=== PATIENT | female | born 1975 | race Caucasian/White ===

== ENCOUNTER 2024-12-21 14:18 | Outpatient (CLI) | payer OTHER | END 2024-12-21 14:19 | disposition home or self-care (01) | LOC: SCSMRI 14:18 | PROVIDERS: ATTEND Family Medicine | DX: S39.92XD Unspecified injury of lower back, subsequent encounter (principal); M47.816 Spondylosis without myelopathy or radiculopathy, lumbar region; M51.369 Other intervertebral disc degeneration, lumbar region without mention of lumbar back pain or lower extremity pain; M43.8X4 Other specified deforming dorsopathies, thoracic region | CPT/HCPCS: 72146; 72148 ==

== ENCOUNTER 2025-01-04 17:42 | Emergency (ER) | payer SELFPAY ==
[2025-01-04] MEDS ORDERED: predniSONE 20 MG TAB ONE (19:13)
[2025-01-04] MEDS ORDERED: Orphenadrine Citrate 100 MG ER.TAB ONE (19:13)
== END 2025-01-04 20:30 | disposition home or self-care (01) ==
LOC: ERS 17:42
DX: M54.50 Low back pain, unspecified (principal); M79.10 Myalgia, unspecified site; I25.2 Old myocardial infarction; F17.210 Nicotine dependence, cigarettes, uncomplicated; F17.290 Nicotine dependence, other tobacco product, uncomplicated
CPT/HCPCS: 96372; 99283; J2270; J7512